=== PATIENT | female | born 1995 | race African-American/Black ===

== ENCOUNTER 2024-01-15 18:02 | Emergency (ER) | payer MEDICAID ==
[2024-01-15] MEDS ORDERED: predniSONE 20 MG TAB ONE (18:41)
[2024-01-15] MEDS ORDERED: predniSONE 20 MG TAB PO SCH (19:00)
[2024-01-15] MEDS ORDERED: valACYclovir 500 MG TAB PO SCH (19:00)
[2024-01-15 19:35] LABS: ALT (SGPT) 16 U/L (8-55); AST (SGOT) 21 U/L (5-34); Alkaline Phosphatase 200 U/L (40-110); Anion Gap 13 mmol/L (10-20); BUN (Urea Nitrogen) 13 mg/dL (7.0-18.7); Bilirubin, Total 0.2 mg/dL (0.2-1.2); Calc. Creatinine Clearance 0 mL/min (70-130); Carbon Dioxide 21 mmol/L (22-29); Chloride 106 mmol/L (98-107); Estimated GFR 105; Globulin 3.7 g/dL (2.4-3.5); Glucose 103 mg/dL (70-105); Magnesium 1.9 mg/dL (1.6-2.6); Potassium 4.1 mmol/L (3.5-5.1); Protein, Total 6.7 g/dL (6.0-8.3); Sodium 136 mmol/L (136-145)
[2024-01-15 19:45] LABS: #Basophils 0.02 10x3/uL (0.0-0.2); #Eosinophils 0.34 10x3/uL (0.0-0.5); #Monocytes 0.61 10x3/uL (0.0-1.1); #Neutrophils 4.32 10x3/uL (1.5-8.4); %Basophils 0.2 % (0.0-2.0); %Eosinophils 4.2 % (0.0-6.0); %Monocytes 7.5 % (0.0-10.0); %Neutrophils 52.7 % (40.0-75.0); Hematocrit 39.2 % (34.9-44.5); Mean Corpuscular HGB CONC 33.2 g/dL (32.0-36.0); Mean Corpuscular Hemoglobin 27.9 pg (27.0-33.0); Mean Corpuscular Volume 84.1 fL (81.6-98.3); Mean Platelet Volume 10.2 fL (7.4-10.4); Platelet Count 264 10x3/uL (150-450); RBC Distribution Width 12.8 % (11.5-14.5); Red Blood Cell (RBC) Count 4.66 10x6/uL (3.90-5.03); White Blood Cell (WBC) Count 8.2 10x3/uL (3.5-10.5)
[2024-01-15 19:47] LABS: INR-International Normal Ratio 0.9; Prothrombin Time 9.8 sec (9.5-12.1)
[2024-01-15 20:28] LABS: Syphilis Antibody Nonreactive (Nonreactive); Syphilis Antibody Index 0.06 S/CO (<1.00 Non-Reactive)
[2024-01-15 21:16] LABS: Creatinine, Urine 231.71 mg/dL (47-110)
[2024-01-16 13:56] LABS: HBSAB Concentration Less than 8.00 mIU/mL; Hep B Surf AB NONREACTIVE (NonReactive)
== END 2024-01-15 19:04 | disposition home or self-care (01) ==
LOC: CSHERS 18:02
DX: O99.353 Diseases of the nervous system complicating pregnancy, third trimester (principal); G51.0 Bell's palsy; Z3A.36 36 weeks gestation of pregnancy
CPT/HCPCS: 36415; 36416; 76815; 82570; 83735; 84156; 85610; 86706; 86762; 86780; 86850; 86870; 86900; 86901; J7512

== ENCOUNTER 2024-01-15 19:09 | Day surgery (SDC) | payer MEDICAID ==
[2024-01-15 19:26] VITALS: BMI 36.3
== END 2024-01-15 20:52 | disposition home or self-care (01) ==
LOC: CSHLD/OP 19:09
PROVIDERS: ATTEND Obstetrics & Gynecology
DX: O99.353 Diseases of the nervous system complicating pregnancy, third trimester (principal); G51.0 Bell's palsy; O24.419 Gestational diabetes mellitus in pregnancy, unspecified control; O99.891 Other specified diseases and conditions complicating pregnancy; R03.0 Elevated blood-pressure reading, without diagnosis of hypertension; Z79.84 Long term (current) use of oral hypoglycemic drugs; Z3A.36 36 weeks gestation of pregnancy; Z79.899 Other long term (current) drug therapy
CPT/HCPCS: 99283

== ENCOUNTER 2024-01-26 02:50 | Inpatient (IN) | payer MEDICAID, SELFPAY ==
[2024-01-26 03:09] VITALS: BMI 33.7
[2024-01-26 03:59] LABS: Fetal Membranes Rupture RUPTURE DETECTED (No Rupture)
[2024-01-26 04:33] LABS: #Basophils 0.01 10x3/uL (0.0-0.2); #Eosinophils 0.36 10x3/uL (0.0-0.5); #Monocytes 0.82 10x3/uL (0.0-1.1); #Neutrophils 4.68 10x3/uL (1.5-8.4); %Basophils 0.1 % (0.0-2.0); %Lymphocytes 33.8 % (18.0-47.0); %Monocytes 9.2 % (0.0-10.0); %Neutrophils 52.6 % (40.0-75.0); Hematocrit 37.3 % (34.9-44.5); Mean Corpuscular HGB CONC 32.2 g/dL (32.0-36.0); Mean Corpuscular Hemoglobin 26.8 pg (27.0-33.0); Mean Corpuscular Volume 83.3 fL (81.6-98.3); Mean Platelet Volume 10.2 fL (7.4-10.4); Platelet Count 222 10x3/uL (150-450); RBC Distribution Width 12.8 % (11.5-14.5); Red Blood Cell (RBC) Count 4.48 10x6/uL (3.90-5.03); White Blood Cell (WBC) Count 8.9 10x3/uL (3.5-10.5)
[2024-01-26 04:44] LABS: ALT (SGPT) 13 U/L (8-55); AST (SGOT) 18 U/L (5-34); Albumin 2.8 g/dL (3.5-5.0); Alkaline Phosphatase 198 U/L (40-110); Anion Gap 13 mmol/L (10-20); BUN (Urea Nitrogen) 10 mg/dL (7.0-18.7); Bilirubin, Total 0.2 mg/dL (0.2-1.2); Calc. Creatinine Clearance 163 mL/min (70-130); Carbon Dioxide 18 mmol/L (22-29); Chloride 109 mmol/L (98-107); Creatinine, Urine 83.56 mg/dL (47-110); Estimated GFR 112; Globulin 3.4 g/dL (2.4-3.5); Glucose 87 mg/dL (70-105); Protein, Total 6.2 g/dL (6.0-8.3); Sodium 136 mmol/L (136-145)
[2024-01-26] MEDS ORDERED: Lidocaine 1% (PF) 30 ML VIAL SC PRN (04:59)
[2024-01-26] MEDS ORDERED: Misoprostol 200 MCG TAB PR PRN (04:59)
[2024-01-26] MEDS ORDERED: Carboprost 250 MCG/ML AMP IM PRN (04:59)
[2024-01-26] MEDS ORDERED: Promethazine HCl 25 MG/ML VIAL IM PRN ×2 (04:59→14:47)
[2024-01-26] MEDS ORDERED: Tranexamic Acid 1,000 MG/10 ML VIAL IVP PRN (04:59)
[2024-01-26] MEDS ORDERED: Ibuprofen 800 MG TAB PO PRN ×2 (04:59→17:28)
[2024-01-26] MEDS ORDERED: Docusate 100 MG CAP PO PRN (04:59)
[2024-01-26] MEDS ORDERED: Methylergonovine 0.2 MG/ML VIAL IM PRN (04:59)
[2024-01-26] MEDS ORDERED: Oxytocin 30 units/NS 500 ML 500 ML IV SCH (05:00)
[2024-01-26 05:51] LABS: HBsAg Index 0.15 S/CO (0-0.99); HIV (1/2) Antibody/Antigen Non-Reactive (NonReactive); HIV 1/2 INDEX 0.07 S/CO (<1.00); Hep B Surf Ag - L&D Non-Reactive S/CO (NonReactive)
[2024-01-26] MEDS: hydrALAZINE 20 MG/ML VIAL SLOW IVP PRN (06:05)
[2024-01-26] MEDS ORDERED: Labetalol HCl 100 MG/20 ML VIAL SLOW IVP PRN (06:09)
[2024-01-26] MEDS ORDERED: Lorazepam 2 MG/ML VIAL SLOW IVP PRN (06:09)
[2024-01-26] MEDS ORDERED: Calcium Gluc 4.6 MEQ/10 ML (100 MG/ML) SLOW IVP PRN (06:09)
[2024-01-26 06:11] LABS: Syphilis Antibody Nonreactive (Nonreactive); Syphilis Antibody Index 0.06 S/CO (<1.00 Non-Reactive)
[2024-01-26] MEDS: Magnesium Sulfate 20 gm/500 ml 20 GM/500 ML BAG IVPB SCH (06:17)
[2024-01-26] MEDS: Penicillin G Potassium 5 MILL.UNITS in Sodium Chloride 0.9% 100 ML IVPB SCH (06:20)
[2024-01-26] MEDS: Labetalol HCl 100 MG/20 ML VIAL SLOW IVP PRN (06:56)
[2024-01-26] MEDS: Oxytocin 30 units/NS 500 ML 500 ML IV SCH (09:39)
[2024-01-26] MEDS: Ondansetron PF 4 MG/2 ML Vial IVP PRN (10:00)
[2024-01-26] MEDS: Lactated Ringer's 1,000 ML IV SCH (10:22)
[2024-01-26] MEDS: Penicillin G 2.5 MILL.units 2.5 MILL.UNITS in Premix 1 BAG IVPB SCH (10:22)
[2024-01-26] MEDS: Magnesium Sulfate 20 gm/500 ml 20 GM/500 ML BAG ONE (10:23)
[2024-01-26] MEDS: Labetalol HCl 100 MG/20 ML VIAL ONE (10:23)
[2024-01-26] MEDS: Acetaminophen 500 MG TAB PO PRN (10:23)
[2024-01-26] MEDS: fentaNYL/Ropivacaine Epidural 100 ML ONE (14:09)
[2024-01-26] MEDS ORDERED: ePHEDrine Sulfate 50 MG/10 ML VIAL SLOW IVP PRN (14:47)
[2024-01-26] MEDS ORDERED: Ondansetron PF 4 MG/2 ML Vial IVP PRN (14:47)
[2024-01-26] MEDS ORDERED: Naloxone HCl 0.4 mg/ml Vial IVP PRN ×2 (14:47)
[2024-01-26] MEDS ORDERED: Acetaminophen 325 MG TAB PO PRN (14:47)
[2024-01-26] MEDS ORDERED: diphenhydrAMINE 50 MG/ML VIAL IVP PRN (14:47)
[2024-01-26] MEDS ORDERED: Moisturizing Cream (Eucerin) 113 GM JAR TOP PRN (14:47)
[2024-01-26] MEDS ORDERED: Lactated Ringer's 500 ML IV PRN (14:47)
[2024-01-26] MEDS ORDERED: Communication Order-Pharmacy FS SCH (15:00)
[2024-01-26] MEDS ORDERED: fentaNYL 2 mcg/Ropivacaine 0.2% Epidural 100 ML CADD EPIDURAL SCH (15:00)
[2024-01-26] MEDS: Ampicillin/Sulbactam 3 GM in Sodium Chloride 0.9% 100 ML IVPB SCH (18:10)
[2024-01-27] MEDS ORDERED: Bupivacaine/Epinephrine 0.25% 30 ML VIAL ONE (06:00)
[2024-01-27] MEDS: Acetaminophen 500 MG TAB PO PRN (15:52)
[2024-01-27] MEDS ORDERED: Boostrix 0.5 ML (Tdap) VIAL (>/=7 yrs of age) IM ONE (16:47)
[2024-01-27] MEDS ORDERED: Milk Of Magnesia 30 ML UDCUP PO PRN (16:47)
[2024-01-27] MEDS ORDERED: Bisacodyl 10 MG SUPP PR PRN (16:47)
[2024-01-27] MEDS ORDERED: Benzocaine-Menthol 82.5 ML CAN TOP PRN (16:47)
[2024-01-27] MEDS ORDERED: hydrALAZINE 20 MG/ML VIAL SLOW IVP PRN (16:47)
[2024-01-27] MEDS: Ferrous Sulfate 325 MG TAB PO SCH (18:34)
[2024-01-27] MEDS: Ibuprofen 800 MG TAB PO SCH (18:39)
[2024-01-27] MEDS: Docusate 100 MG CAP PO SCH (21:06)
[2024-01-28] MEDS: Prenatal Vitamin 1 TAB PO SCH (08:31)
[2024-01-28 11:53] VITALS: BP 126/83; TEMP 98.1
== END 2024-01-28 15:05 | disposition home or self-care (01) | DRG 807 ==
LOC: CSHLD/OP 02:50 → CSHLD 04:34 → CSHPP 01-27 16:59
PROVIDERS: ADMIT Obstetrics & Gynecology; ATTEND Obstetrics & Gynecology
PROC: 10E0XZZ Delivery of Products of Conception, External Approach (ICD-10-PCS; principal; 2024-01-26)
PROC: 0KQM0ZZ Repair Perineum Muscle, Open Approach (ICD-10-PCS; 2024-01-26)
PROC: 0UQMXZZ Repair Vulva, External Approach (ICD-10-PCS; 2024-01-26)
PROC: 10H07YZ Insertion of Other Device into Products of Conception, Via Natural or Artificial Opening (ICD-10-PCS; 2024-01-26)
DX: O42.02 Full-term premature rupture of membranes, onset of labor within 24 hours of rupture (principal); Z37.0 Single live birth; Z3A.38 38 weeks gestation of pregnancy; O70.1 Second degree perineal laceration during delivery; O71.82 Other specified trauma to perineum and vulva; O24.420 Gestational diabetes mellitus in childbirth, diet controlled; O14.14 Severe pre-eclampsia complicating childbirth; Z79.84 Long term (current) use of oral hypoglycemic drugs
CPT/HCPCS: 36416; 51702; 80053; 82570; 84112; 84156; 85025; 86780; 86850; 86900; 86901; 87340; 87389; 99285; J0295; J0360; J2405; J2540; J2590; J3475; J7120